=== PATIENT | male | born 1960 | race African-American/Black ===

== ENCOUNTER 2018-08-11 13:36 | Inpatient (IN) | payer OTHER ==
[2018-08-11 15:29] VITALS: BMI 24.7
--- NOTE | 2018-08-11 16:20 | HP ---
CIWA Score Nausea/Vomitin Muscle Tremors: 2 Anxiety: 3 Agitation: 3 Paroxysmal Sweats: No Perspiration Orientation: 0-Oriented Tacttile Disturbances: 3-Moderate Itch/Numb/Burn Auditory Disturbances: 0-None Visual Disturbances: 0-None Headache: 0-None Present CIWA-Ar Total Score: 13 - Admission Criteria [facility]ASAS Guidelines: Admission for Medically Managed Detox: Requires at least one of the followin. CIWA greater than 12 2. Seizures within the past 24 hours 3. Delirium tremens within the past 24 hours 4. Hallucinations within the past 24 hours 5. Acute intervention needed for co occurring medical disorder 6. Acute intervention needed for co occurring psychiatric disorder 7. Severe withdrawal that cannot be handled at a lower level of care (continued vomiting, continued diarrhea, abnormal vital signs) requiring intravenous medication and/or fluids 8. [facility] Chief Complaint: ETOH WITHDRAWAL SYMPTOMS AND CRACK/COCAINE DEPENDENCE. Allergies/Adverse Reactions: Allergies Allergy/AdvReac Type Severity Reaction Status Date / Time No Known Allergies Allergy Verified 08/11/18 16:13 History of Present Illness: PATIENT PRESENTS FOR ETOH WITHDRAWAL SX AND CRACK/COCAINE DEPENDENCE. PATIENT STARTED DRINKING AT AGE 50, DRINKS 1/2 PINT OF VODKA AND 6 BEERS DAILY. LAST DRINK THIS MORNING. PATIENT DENIES H/O SEIZURES, BLACKOUTS, AND FALLS. + DRINKS FIRST THING IN THE MORNING BUT DENIES BINGE DRINKING. PATIENT ALSO SMOKES CRACK COCAINE, AMOUNT VARIES, LAST TIME HE SMOKED WAS LAST NIGHT. CURRENTLY ON METHADONE PROGRAM AT [facility], RN DOSE VERIFICATION PENDING. LAST DOSE TODAY. UDS +CARLTON, FEN, OPI, OXY, MTD, BAR, MDMA. PATIENT ALSO SNIFFS 4 BAGS OF HEROIN DAILY IN ADDITION TO MTD. DENIES OVERDOSE. PMH DEPRESSION, ANXIETY AND INSOMNIA. DENIES SI/HI AND SUICIDE ATTEMPTS. Exam Limitations: No Limitations - Ebola screening Have you traveled outside of the country in the last 21 days: No (N) Have you had contact with anyone from an Ebola affected area: No Have you been sick,other than usual withdrawal symptoms: No Do you have a fever: No - Review of Systems Constitutional: Chills, Night Sweats, Changes in sleep EENT: reports: No Symptoms Reported Respiratory: reports: No Symptoms reported Cardiac: reports: No Symptoms Reported GI: reports: Diarrhea, Nausea, Poor Fluid Intake, Abdominal cramping : reports: No Symptoms Reported Musculoskeletal: reports: Back Pain, Joint Pain, Muscle Pain Integumentary: reports: No Symptoms Reported Neuro: reports: Numbness, Tingling, Tremors Endocrine: reports: No Symptoms Reported Hematology: reports: No Symptoms Reported Psychiatric: reports: Orientated x3, Anxious, Depressed Patient History - Patient Medical History Hx Anemia: No Hx Asthma: No Hx Chronic Obstructive Pulmonary Disease (COPD): No Hx Cancer: No Hx Cardiac Disorders: Yes (HX OF MD 03/19/2018) Hx Congestive Heart Failure: No Hx Hypertension: No Hx Hypercholesterolemia: No Hx Pacemaker: No HX Cerebrovascular Accident: No Hx Seizures: No Hx Dementia: No Hx Diabetes: No Hx Gastrointestinal Disorders: No Hx Liver Disease: No Hx Genitourinary Disorders: No Hx Sexually Transmitted Disorders: No Hx Renal Disease (ESRD): No Hx Thyroid Disease: No Hx Human Immunodeficiency Virus (HIV): No Hx Hepatitis C: No Hx Depression: Yes Hx Suicide Attempt: No Hx Bipolar Disorder: No Hx Schizophrenia: No - Patient Surgical History Past Surgical History: Yes Hx Orthopedic Surgery: Yes (LEFT LEG ORIF 2014) Anesthesia Reaction: No - PPD History Previous Implant?: Yes Documented Results: Negative w/o proof PPD to be Administered?: Yes - Smoking Cessation Smoking history: Current every day smoker Have you smoked in the past 12 months: Yes Aproximately how many cigarettes per day: 10 Hx Chewing Tobacco Use: No Initiated information on smoking cessation: Yes 'Breaking Loose' booklet given: 08/11/18 - Substance & Tx. History Hx Alcohol Use: Yes Hx Substance Use: Yes Substance Use Type: Alcohol, Cocaine, Heroin, Prescribed Hx Substance Use Treatment: Yes - Substances Abused Alcohol Route: Oral Frequency: Daily Amount used: 1/2 PINT, 6 BEERS Age of first use: 50 Date of Last Use: 08/11/18 Cocaine Route: Smoking Frequency: Daily Amount used: VARIES Age of first use: 37 Date of Last Use: 08/10/18 Heroin Route: Inhalation Frequency: Daily Amount used: 4 BAGS Age of first use: 37 Date of Last Use: 08/10/18 Family Disease History - Family Disease History Family Disease History: Diabetes: Father (), Heart Disease: Father, Other: Mother (, ALCOHOLISM) Admission Physical Exam BHS - Vital Signs Vital Signs: Vital Signs - 24 hr 08/11/18 15:08 Temperature 98.1 F Pulse Rate 61 Respiratory 18 Rate Blood Pressure 133/79 - Physical General Appearance: Yes: No Apparent Distress, Appropriately Dressed, Tremorous , Anxious HEENTM: Yes: EOMI, Hearing grossly Normal, Normocephalic, Normal Voice, VERONICA, Pharynx Normal Respiratory: Yes: Chest Non-Tender, Lungs Clear, Normal Breath Sounds, No Respiratory Distress, No Accessory Muscle Use Neck: Yes: No masses,lesions,Nodules, Supple, Trachea in good position Breast: Yes: Breast Exam Deferred Cardiology: Yes: Regular Rhythm, Regular Rate, S1, S2 Abdominal: Yes: Normal Bowel Sounds, Non Tender, Soft Genitourinary: Yes: Within Normal Limits Back: Yes: Muscle Spasm Musculoskeletal: Yes: full range of Motion, Gait Steady, Back pain, Muscle Pain Extremities: Yes: Normal Inspection, Normal Range of Motion, Non-Tender, Tremors Neurological: Yes: animal behaviorist II-XII NML intact, Fully Oriented, Alert, Motor Strength 5/5, Normal Response, Depressed Affect Integumentary: Yes: Normal Color, Dry, Warm Lymphatic: Yes: Within Normal Limits - Diagnostic (1) Alcohol dependence with uncomplicated withdrawal Current Visit: Yes Status: Acute (2) Methadone maintenance therapy patient Current Visit: Yes Status: Chronic (3) Cocaine dependence Current Visit: Yes Status: Chronic Qualifiers: Substance use status: uncomplicated Qualified Code(s): F14.20 - Cocaine dependence, uncomplicated (4) Tobacco use Current Visit: Yes Status: Chronic (5) Depressed affect Current Visit: Yes Status: Suspected Cleared for [facility] Level of Care: Medically Managed Detox Regimen/Protocol: Lib[facility] Breath Alcohol Content Breath Alcohol Content: 0 Vital Signs - Vital Signs Vital Signs Refused: Yes Temperature: 98.1 F Temperature Source: Oral Pulse Rate: 61 Respiratory Rate: 18 Blood Pressure: 133/79 BP Location: Left Arm Blood Pressure Position: Sitting - Height Height: 6 ft 3 in - Weight Weight: 198 lb Weight Measurement Method: Standing Scale Body Mass Index (BMI): 24.7 - Bowel Function Bowel Movement: Yes Urine Drug Screen - Results Drug Screen Negative: No Urine Drug Screen Results: CARLTON-Cocaine, OPI-Opiates, MDMA-Ecstasy, BAR- Barbiturates, MTD-Methadone, OXY-Oxycodone, FEN-Fentanyl
[2018-08-11] MEDS ORDERED: IBUPROFEN 400 MG TABLET (FP) PO PRN (16:33)
[2018-08-11] MEDS ORDERED: MAGNESIUM CITRATE 300 ML BOTTLE PO PRN (16:33)
[2018-08-11] MEDS ORDERED: MAGNESIUM HYDROX 2400MG/30ML ORAL SUSPENSION 30 ML CUP PO PRN (16:33)
[2018-08-11] MEDS ORDERED: LOPERAMIDE HCL 2 MG CAPSULE PO PRN (16:33)
[2018-08-11] MEDS ORDERED: ACETAMINOPHEN 325 MG TABLET (FP) PO PRN (16:33)
[2018-08-11] MEDS ORDERED: hydrOXYzine PAMOATE 50 MG CAPSULE (FP) PO PRN (16:33)
[2018-08-11] MEDS ORDERED: MAG HYDROX/AL HYDROX/SIMETH 30 ML UNIT-DOSE CUP PO PRN (16:33)
[2018-08-11] MEDS ORDERED: NICOTINE POLACRILEX 2 MG GUM BC PRN (16:33)
[2018-08-11] MEDS ORDERED: MENTHOL/PHENOL 1 EACH UD MM PRN (16:33)
[2018-08-11] MEDS ORDERED: P-EPHED 60MG/TRIPROLIDI 2.5MG TABLET PO PRN (16:33)
[2018-08-11] MEDS ORDERED: guaiFENesin/D-METHORPHAN HB 10 ML UNIT-DOSE CUPS PO PRN (16:33)
[2018-08-11] MEDS ORDERED: chlordiazePOXIDE HCL 25 MG CAPSULE PO PRN (16:34)
[2018-08-11] MEDS: THIAMINE HCL 100 MG TABLET (FP) PO SCH (22:27)
[2018-08-11] MEDS: chlordiazePOXIDE HCL 25 MG CAPSULE PO SCH (22:27)
[2018-08-12 00:05] LABS: URINE APPEARANCE CLEAR; URINE BILIRUBIN NEGATIVE (<2.0 mg/dL); URINE COLOR YELLOW; URINE GLUCOSE (UA) NEGATIVE (NEGATIVE); URINE KETONE NEGATIVE (NEGATIVE); URINE LEUK ESTERASE NEGATIVE (NEGATIVE); URINE NITRITE NEGATIVE (NEGATIVE); URINE PROTEIN NEGATIVE (NEGATIVE)
[2018-08-12] MEDS: chlordiazePOXIDE HCL 25 MG CAPSULE PO SCH ×4 (05:09→22:17)
[2018-08-12] MEDS ORDERED: METHADONE HCL 40 MG DISPERSABLE TABLET PO ONE (09:20)
[2018-08-12 10:09] LABS: HEMATOCRIT 43.4 % (35.4-49); MCH 28.8 pg (25.7-33.7); MCHC 32.1 g/dl (32.0-35.9); MEAN CELL VOLUME 89.6 fl (80-96); PLATELET COUNT 110 K/MM3 (134-434); RBC 4.85 M/mm3 (4.00-5.60); RDW 14.8 % (11.9-15.9); WHITE BLOOD COUNT 6.2 K/mm3 (4.0-10.0)
[2018-08-12] MEDS: NICOTINE 21 MG/24 HOURS TOPICAL PATCH TD SCH (10:24)
[2018-08-12] MEDS: PRENATAL VITAMINS W/ FOLIC ACID TABLET (FP) PO SCH (10:25)
[2018-08-12 11:10] LABS: ALBUMIN 3.6 g/dl (3.4-5.0); ALK PHOS 85 U/L (45-117); ANION GAP 4 MMOL/L (8-16); BILIRUBIN,TOTAL 0.2 mg/dL (0.2-1); BLOOD UREA NITROGEN 15 mg/dL (7-18); CALCIUM 8.6 mg/dL (8.5-10.1); CHLORIDE 104 mmol/L (98-107); CO2 30 mmol/L (21-32); CREATININE 0.9 mg/dL (0.55-1.3); GLUCOSE,RANDOM 91 mg/dL (74-106); SGOT/AST 20 U/L (15-37); SGPT/ALT 33 U/L (13-61); SODIUM 139 mmol/L (136-145); TOT PROT 7.5 g/dl (6.4-8.2)
--- NOTE | 2018-08-12 16:16 | PN ---
S CIWA - CIWA Score Nausea/Vomitin Muscle Tremors: 4-Moderate,w/Arms Extend Anxiety: 4-Mod. Anxious/Guarded Agitation: 4-Moderately Restless Paroxysmal Sweats: 3 Orientation: 0-Oriented Tacttile Disturbances: 0-None Auditory Disturbances: 0-None Visual Disturbances: 0-None Headache: 0-None Present CIWA-Ar Total Score: 17 BHS Progress Note (SOAP) Subjective: Sweating, interrupted sleep, anxious Objective: 08/12/18 16:15 Last Vital Signs Temp Pulse Resp BP Pulse Ox 97.3 F L 50 L 17 119/70 08/12/18 13:39 08/12/18 13:39 08/12/18 13:39 08/12/18 13:39 Laboratory Tests 08/11/18 08/12/18 08/12/18 23:10 07:00 07:00 WBC 6.2 RBC 4.85 Hgb 14.0 Hct 43.4 MCV 89.6 MCH 28.8 MCHC 32.1 RDW 14.8 Plt Count 110 L MPV 10.0 Sodium 139 Potassium 4.0 Chloride 104 Carbon Dioxide 30 Anion Gap 4 L BUN 15 Creatinine 0.9 Creat Clearance w eGFR > 60 Random Glucose 91 Calcium 8.6 Total Bilirubin 0.2 AST 20 ALT 33 Alkaline Phosphatase 85 Total Protein 7.5 Albumin 3.6 Urine Color Yellow Urine Appearance Clear Urine pH 5.0 Ur Specific [place] 1.030 Urine Protein Negative Urine Glucose (UA) Negative Urine Ketones Negative Urine Blood Negative Urine Nitrite Negative Urine Bilirubin Negative Urine Urobilinogen 2.0 Ur Leukocyte Esterase Negative HIV 1&2 Antibody Screen HIV P24 Antigen 08/12/18 07:00 WBC RBC Hgb Hct MCV MCH MCHC RDW Plt Count MPV Sodium Potassium Chloride Carbon Dioxide Anion Gap BUN Creatinine Creat Clearance w eGFR Random Glucose Calcium Total Bilirubin AST ALT Alkaline Phosphatase Total Protein Albumin Urine Color Urine Appearance Urine pH Ur Specific [place] Urine Protein Urine Glucose (UA) Urine Ketones Urine Blood Urine Nitrite Urine Bilirubin Urine Urobilinogen Ur Leukocyte Esterase HIV 1&2 Antibody Screen Negative HIV P24 Antigen Negative Labs reviewed Assessment: 08/12/18 16:15 Withdrawal symptoms Plan: Continue detox Encouraged PO water intake
[2018-08-12] MEDS: THIAMINE HCL 100 MG TABLET (FP) PO SCH (22:17)
[2018-08-12] MEDS: MELATONIN 5 MG TABLETS PO PRN (22:17)
[2018-08-13] MEDS: chlordiazePOXIDE HCL 25 MG CAPSULE PO SCH ×3 (05:23→17:14)
[2018-08-13] MEDS: METHADONE HCL 40 MG DISPERSABLE TABLET PO SCH (05:23)
[2018-08-13] MEDS: PRENATAL VITAMINS W/ FOLIC ACID TABLET (FP) PO SCH (10:19)
[2018-08-13] MEDS: NICOTINE 21 MG/24 HOURS TOPICAL PATCH TD SCH (10:19)
--- NOTE | 2018-08-13 11:15 | PN ---
S CIWA - CIWA Score Nausea/Vomitin Muscle Tremors: 1-None Visible, but [place] Anxiety: 3 Agitation: 0-Normal Activity Paroxysmal Sweats: No Perspiration Orientation: 0-Oriented Tacttile Disturbances: 3-Moderate Itch/Numb/Burn Auditory Disturbances: 0-None Visual Disturbances: 0-None Headache: 0-None Present CIWA-Ar Total Score: 9 BHS Progress Note (SOAP) Subjective: Patient c/o anxiety, burning/itching/discomfort to right foot 5th toe, mild shakes. Objective: 08/13/18 11:16 Vital Signs Temperature 96.4 F L 08/13/18 09:13 Pulse Rate 51 L 08/13/18 09:13 Respiratory Rate 18 08/13/18 09:13 Blood Pressure 138/83 08/13/18 09:13 O2 Sat by Pulse Oximetry (%) Laboratory Tests 08/11/18 08/12/18 08/12/18 23:10 07:00 07:00 WBC 6.2 RBC 4.85 Hgb 14.0 Hct 43.4 MCV 89.6 MCH 28.8 MCHC 32.1 RDW 14.8 Plt Count 110 L MPV 10.0 Sodium 139 Potassium 4.0 Chloride 104 Carbon Dioxide 30 Anion Gap 4 L BUN 15 Creatinine 0.9 Creat Clearance w eGFR > 60 Random Glucose 91 Calcium 8.6 Total Bilirubin 0.2 AST 20 ALT 33 Alkaline Phosphatase 85 Total Protein 7.5 Albumin 3.6 Urine Color Yellow Urine Appearance Clear Urine pH 5.0 Ur Specific [place] 1.030 Urine Protein Negative Urine Glucose (UA) Negative Urine Ketones Negative Urine Blood Negative Urine Nitrite Negative Urine Bilirubin Negative Urine Urobilinogen 2.0 Ur Leukocyte Esterase Negative HIV 1&2 Antibody Screen HIV P24 Antigen 08/12/18 07:00 WBC RBC Hgb Hct MCV MCH MCHC RDW Plt Count MPV Sodium Potassium Chloride Carbon Dioxide Anion Gap BUN Creatinine Creat Clearance w eGFR Random Glucose Calcium Total Bilirubin AST ALT Alkaline Phosphatase Total Protein Albumin Urine Color Urine Appearance Urine pH Ur Specific [place] Urine Protein Urine Glucose (UA) Urine Ketones Urine Blood Urine Nitrite Urine Bilirubin Urine Urobilinogen Ur Leukocyte Esterase HIV 1&2 Antibody Screen Negative HIV P24 Antigen Negative PE: alert and oriented x 3 skin warm and dry car s1s2 resp cta bl ext full rom, right foot/toes intact, no swelling or redness noted amb ad jay Assessment: 08/13/18 11:18 withdrawal sx Plan: continue detox encourage oral fluids continue to monitor clinically
[2018-08-13] MEDS: THIAMINE HCL 100 MG TABLET (FP) PO SCH (22:17)
[2018-08-13] MEDS: MELATONIN 5 MG TABLETS PO PRN (22:17)
[2018-08-13] MEDS: chlordiazePOXIDE 5 MG CAPSULE PO SCH (22:17)
[2018-08-14] MEDS: METHADONE HCL 40 MG DISPERSABLE TABLET PO SCH (05:46)
[2018-08-14] MEDS: chlordiazePOXIDE 5 MG CAPSULE PO SCH ×3 (05:46→17:52)
[2018-08-14] MEDS: PRENATAL VITAMINS W/ FOLIC ACID TABLET (FP) PO SCH (10:31)
[2018-08-14] MEDS: NICOTINE 21 MG/24 HOURS TOPICAL PATCH TD SCH (10:31)
--- NOTE | 2018-08-14 11:23 | PN ---
BHS Progress Note (SOAP) Subjective: C/O ANXIETY,SWEATS, FATIGUE. Objective: 08/14/18 12:45 Vital Signs 08/14/18 08/14/18 06:19 09:52 Temperature 97.9 F 96.4 F L Pulse Rate 46 L 88 Respiratory 18 18 Rate Blood Pressure 118/72 139/91 Laboratory Tests 08/11/18 08/12/18 08/12/18 23:10 07:00 07:00 WBC 6.2 RBC 4.85 Hgb 14.0 Hct 43.4 MCV 89.6 MCH 28.8 MCHC 32.1 RDW 14.8 Plt Count 110 L MPV 10.0 Sodium 139 Potassium 4.0 Chloride 104 Carbon Dioxide 30 Anion Gap 4 L BUN 15 Creatinine 0.9 Creat Clearance w eGFR > 60 Random Glucose 91 Calcium 8.6 Total Bilirubin 0.2 AST 20 ALT 33 Alkaline Phosphatase 85 Total Protein 7.5 Albumin 3.6 Urine Color Yellow Urine Appearance Clear Urine pH 5.0 Ur Specific [place] 1.030 Urine Protein Negative Urine Glucose (UA) Negative Urine Ketones Negative Urine Blood Negative Urine Nitrite Negative Urine Bilirubin Negative Urine Urobilinogen 2.0 Ur Leukocyte Esterase Negative RPR Titer HIV 1&2 Antibody Screen HIV P24 Antigen 08/12/18 08/12/18 07:00 07:00 WBC RBC Hgb Hct MCV MCH MCHC RDW Plt Count MPV Sodium Potassium Chloride Carbon Dioxide Anion Gap BUN Creatinine Creat Clearance w eGFR Random Glucose Calcium Total Bilirubin AST ALT Alkaline Phosphatase Total Protein Albumin Urine Color Urine Appearance Urine pH Ur Specific [place] Urine Protein Urine Glucose (UA) Urine Ketones Urine Blood Urine Nitrite Urine Bilirubin Urine Urobilinogen Ur Leukocyte Esterase RPR Titer Nonreactive HIV 1&2 Antibody Screen Negative HIV P24 Antigen Negative Assessment: 08/14/18 12:45 WITHDRAWAL SX Plan: CONTINUE DETOX
[2018-08-14] MEDS: THIAMINE HCL 100 MG TABLET (FP) PO SCH (22:04)
[2018-08-14] MEDS: chlordiazePOXIDE HCL 10 MG CAPSULE PO SCH (22:04)
[2018-08-15] MEDS: METHADONE HCL 40 MG DISPERSABLE TABLET PO SCH (06:01)
[2018-08-15] MEDS: chlordiazePOXIDE HCL 10 MG CAPSULE PO SCH ×2 (06:01→10:48)
[2018-08-15 07:03] VITALS: BP 121/73; PULSE 49; TEMP 98.2
[2018-08-15] MEDS: NICOTINE 21 MG/24 HOURS TOPICAL PATCH TD SCH (10:48)
[2018-08-15] MEDS: PRENATAL VITAMINS W/ FOLIC ACID TABLET (FP) PO SCH (10:48)
--- NOTE | 2018-08-15 16:29 | DS ---
[facility] Detox Discharge Summary Admission Date: 08/11/18 Discharge Date: 08/15/18 - History Present History: Alcohol Dependence, Cocaine Dependence, Opioid Dependence Additional Comments: Patient completed detox successfully. Instructed to follow up with his PCP within 1-2 weeks. Pertinent Past History: Alcohol dependence Cocaine dependence Nicotine dependence Opioid dependence on agonist History of AR Depression - Physical Exam Results Vital Signs: Vital Signs Temperature 98.2 F 08/15/18 07:03 Pulse Rate 49 L 08/15/18 07:03 Respiratory Rate 16 08/15/18 07:03 Blood Pressure 121/73 08/15/18 07:03 O2 Sat by Pulse Oximetry (%) Pertinent Admission Physical Exam Findings: Withdrawal symptoms Laboratory Tests 08/11/18 08/12/18 08/12/18 23:10 07:00 07:00 WBC 6.2 RBC 4.85 Hgb 14.0 Hct 43.4 MCV 89.6 MCH 28.8 MCHC 32.1 RDW 14.8 Plt Count 110 L MPV 10.0 Sodium 139 Potassium 4.0 Chloride 104 Carbon Dioxide 30 Anion Gap 4 L BUN 15 Creatinine 0.9 Creat Clearance w eGFR > 60 Random Glucose 91 Calcium 8.6 Total Bilirubin 0.2 AST 20 ALT 33 Alkaline Phosphatase 85 Total Protein 7.5 Albumin 3.6 Urine Color Yellow Urine Appearance Clear Urine pH 5.0 Ur Specific [place] 1.030 Urine Protein Negative Urine Glucose (UA) Negative Urine Ketones Negative Urine Blood Negative Urine Nitrite Negative Urine Bilirubin Negative Urine Urobilinogen 2.0 Ur Leukocyte Esterase Negative RPR Titer HIV 1&2 Antibody Screen HIV P24 Antigen 08/12/18 08/12/18 07:00 07:00 WBC RBC Hgb Hct MCV MCH MCHC RDW Plt Count MPV Sodium Potassium Chloride Carbon Dioxide Anion Gap BUN Creatinine Creat Clearance w eGFR Random Glucose Calcium Total Bilirubin AST ALT Alkaline Phosphatase Total Protein Albumin Urine Color Urine Appearance Urine pH Ur Specific [place] Urine Protein Urine Glucose (UA) Urine Ketones Urine Blood Urine Nitrite Urine Bilirubin Urine Urobilinogen Ur Leukocyte Esterase RPR Titer Nonreactive HIV 1&2 Antibody Screen Negative HIV P24 Antigen Negative Labs reviewed - Treatment Hospital Course: Detox Protocol Followed, Detoxed Safely, Responded well, Discharged Condition Good - Medication Discharge Medications: Ambulatory Orders Methadone [Dolophine -] 40 mg PO DAILY 08/11/18 - Diagnosis (1) Nicotine dependence Status: Chronic Qualifiers: Nicotine product type: cigarettes Substance use status: in withdrawal Qualified Code(s): F17.213 - Nicotine dependence, cigarettes, with withdrawal (2) Myocardial infarction, old Status: Chronic (3) Opioid dependence on agonist therapy Status: Acute (4) Alcohol dependence with uncomplicated withdrawal Status: Acute (5) Cocaine dependence Status: Chronic Qualifiers: Substance use status: uncomplicated Qualified Code(s): F14.20 - Cocaine dependence, uncomplicated (6) Depression Status: Chronic - AMA Did Patient Leave Against Medical Advice: No (F/U with PCP within 1-2 weeks)
== END 2018-08-15 10:04 | disposition home or self-care (01) | DRG 773 ==
LOC: YASAS 13:36 → Y3N 16:54
PROC: HZ2ZZZZ Detoxification Services for Substance Abuse Treatment (ICD-10-PCS; principal; 2018-08-11)
DX: F10.230 Alcohol dependence with withdrawal, uncomplicated (principal); F14.20 Cocaine dependence, uncomplicated; F11.20 Opioid dependence, uncomplicated; F17.213 Nicotine dependence, cigarettes, with withdrawal; F32.9 Major depressive disorder, single episode, unspecified; I25.2 Old myocardial infarction; R45.89 Other symptoms and signs involving emotional state
CPT/HCPCS: 36415; 80053; 81003; 85027; 86593; 87389